=== PATIENT | female | born 1950 | race Caucasian/White ===

== ENCOUNTER 2023-05-18 17:09 | Emergency (ER) | payer MEDICARE, SELFPAY ==
[2023-05-18 17:30] VITALS: BP 159/78; PULSE 75; RESP 20; TEMP 36.4; O2SAT 95; BMI 35.7
--- NOTE | 2023-05-18 18:28 | ED.GENADULT ---
HPI - General Adult General Chief complaint: Dental/Oral/Mouth Injury/Pain Stated complaint: toothache Time Seen by Provider: 05/18/23 18:20 History of Present Illness HPI narrative: c/o bad toothache, hx of bad teeth. friday started having toothache L upper. has been trying to find place to go for help with her teeth, has been unsuccessful. 72-year-old woman presenting to the emergency department with complaint of tooth pain. Particularly left upper face has been hurting. No drainage no fever. Unable to get in a timely manner to any dentist. No recent trauma. Has not noted particular swelling. Ibuprofen, acetaminophen does not cutting it. Cold sensitivity. Related Data Home Medications Medication Instructions Recorded Confirmed Trelegy Ellipta 05/18/23 atorvastatin 10 mg tablet 10 mg PO DAILY 05/18/23 05/18/23 bupropion HCl 300 mg 24 hr tablet, 300 mg PO DAILY 05/18/23 05/18/23 extended release cholecalciferol (vitamin D3) 50 50 mcg PO DAILY 05/18/23 05/18/23 mcg (2,000 unit) tablet metformin 500 mg tablet 500 mg PO DAILY 05/18/23 05/18/23 trazodone 50 mg tablet mg PO 05/18/23 Allergies Allergy/AdvReac Type Severity Reaction Status Date / Time codeine Allergy Mild Verified 05/18/23 17:38 Review of Systems Status of ROS: Reports: 6 or more systems reviewed and unremarkable except as noted in History and below Exam Narrative: Exam Narrative: Pleasant. Calm. Clearly uncomfortable though. Breathing easily. Skin is warm and dry. I do not appreciate swelling to external exam. No cervical lymphadenopathy. Oropharynx with some hyperemia. Oral dentition with number of erosions down to gum line. Broken teeth. Left upper has similar. Apparently this is the area of pain. I do not appreciate specific area of swelling. Const: Vital Signs, click to edit/add: Vital Signs - 24 hr 05/18/23 17:30 Temperature 97.6 F Pulse Rate [Pulse Oximeter] 75 Respiratory Rate 20 Blood Pressure [Ri ght Upper Arm] 159/78 H Pulse Oximetry 95 Oxygen Delivery Me thod Room Air Documenting provider has reviewed patient's vital signs: yes Course Vital Signs Vital signs: Initial Vital Signs Temperature 97.6 F 05/18/23 17:30 Temperature Source Temporal Artery Scan 05/18/23 17:30 Pulse Rate 75 05/18/23 17:30 Respiratory Rate 20 05/18/23 17:30 Blood Pressure 159/78 H 05/18/23 17:30 Blood Pressure Mean 105 05/18/23 17:30 Blood Pressure Position Supine 05/18/23 17:30 Pulse Oximetry 95 05/18/23 17:30 Oxygen Delivery Method Room Air 05/18/23 17:30 Vital Signs Temperature 97.6 F 05/18/23 17:30 Pulse Rate 75 05/18/23 17:30 Respiratory Rate 20 05/18/23 17:30 Blood Pressure 159/78 H 05/18/23 17:30 Pulse Oximetry 95 05/18/23 17:30 Oxygen Delivery Method Room Air 05/18/23 17:30 Temperature 97.6 F 05/18/23 17:30 Pulse Rate 75 05/18/23 17:30 Respiratory Rate 20 05/18/23 17:30 Blood Pressure 159/78 H 05/18/23 17:30 Pulse Oximetry 95 05/18/23 17:30 Oxygen Delivery Method Room Air 05/18/23 17:30 Medical Decision Making MDM Narrative Medical decision making narrative: I did discuss treatment options. As she is anticipating care, often antibiotics are desired I had of time by the dentist. I would anticipate extraction here. Can't say there is an abscess here; I think this is more sensitivity that can happen suddenly. Did offer injection which she readily accepted. Placed Marcaine in superior alveolar block and then buccal block. This resulted in near full resolution of her pain. More relaxed. Admittedly this is temporary. See patient discharge plan Discharge Plan Discharge Clinical Impression: Dental erosion, Pain, dental Patient Disposition: Home, Self-Care Condition: Stable Additional Instructions: Consider warm saltwater rinses --this is putting in 1/4 tsp salt in 4 oz of warm water -- couple of times daily. You might try topical Orajel or similar. Temporarily and maybe best with a little bit of food can take up to 800 mg of ibuprofen per dose or alternatively up to 500 mg of naproxen 2 times daily. Either can be combined with up to 1000 mg of acetaminophen per dose. Member that each tablet of [place] contains 325 mg of acetaminophen. Also will give you penicillin from [facility]. Take this list of dental clinic options available in the area. I would schedule a follow-up appointment with your primary care provider to pursue further pain management options. Prescriptions: No Action metformin 500 mg tablet 500 mg PO DAILY trazodone 50 mg tablet PO atorvastatin 10 mg tablet 10 mg PO DAILY bupropion HCl 300 mg tablet extended release 24 hr 300 mg PO DAILY cholecalciferol (vitamin D3) 50 mcg (2,000 unit) tablet 50 mcg PO DAILY [facility] Stand Alone Forms: [facility] Info Instructions
== END 2023-05-18 19:08 | disposition home or self-care (01) ==
PROVIDERS: Emergency Provider Family Medicine; PCP Family Medicine
DX: K03.2 Erosion of teeth (principal); K08.89 Other specified disorders of teeth and supporting structures
CPT/HCPCS: 64400; 99283; 99284